=== PATIENT | female | born 1940 | race African-American/Black ===

== ENCOUNTER 2019-11-19 10:45 | Observation (INO) ==
[2019-11-19 12:47] LABS: Basophils # 0.1 K/mcL (0.0-0.2); Basophils % 0.9 %; Eosinophils # 0.2 K/mcL (0.0-0.6); Eosinophils % 3.5 %; Hematocrit 29.5 % (35.3-44.9); Hemoglobin 9.3 g/dL (11.5-15.4); Immature Granulocytes % 0.2 % (0-4); Lymphocytes # 1.8 K/mcL (0.6-4.6); Lymphocytes % 31.8 %; Mean Corpuscular HGB Conc 31.5 g/dL (31.6-35.5); Mean Corpuscular Hemoglobin 28.6 pg (28.0-33.3); Mean Corpuscular Volume 90.8 fL (83.0-100.0); Mean Platelet Volume 9.7 fL (9.4-12.4); Monocytes # 0.5 K/mcL (0.0-1.3); Monocytes % 8.1 %; Neutrophils # 3.1 K/mcL (1.6-8.9); Platelet Count 239 K/mcL (140-400); Red Blood Count 3.25 M/mcL (3.82-4.97); Red Cell Distribution Width 13.3 % (11.5-14.5); Segmented Neutrophils % 55.5 %; White Blood Count 5.7 K/mcL (4.3-11.1)
[2019-11-19 12:53] LABS: INR 1.2; Prothrombin Time 14.1 Seconds (9.4-12.1)
[2019-11-19 12:55] LABS: Activated Partial Thrombo Time 32.6 Seconds (26.0-36.0)
[2019-11-19 13:10] LABS: Alanine Aminotransferase 6 Units/L (7-52); Albumin 3.5 g/dL (3.5-5.7); Albumin/Globulin Ratio 0.8 (1.1-2.2); Alkaline Phosphatase 64 Units/L (34-104); Aspartate Amino Transferase 13 Units/L (13-39); BUN/Creatinine Ratio 16 (6-26); Bilirubin,Total 0.5 mg/dL (0.3-1.0); Blood Urea Nitrogen 15 mg/dL (8-23); Calcium 8.8 mg/dL (8.6-10.3); Carbon Dioxide 23 mEq/L (23-29); Chloride 106 mEq/L (98-107); Globulin 4.2 g/dL (2.4-3.5); Glucose 75 mg/dL (70-105); Osmolality,Calculated 284 (280-300); Potassium 3.9 mEq/L (3.5-5.1); Sodium 137 mEq/L (136-145); Total Protein 7.7 g/dL (6.4-8.9); Troponin I < 0.03 ng/mL (< 0.04); eGFR For African Americans > 60 (> 60); eGFR For Non-African Americans 58 (> 60)
[2019-11-19] MEDS ORDERED: Furosemide 40 MG/4 ML VIAL IVP ONE (13:34)
[2019-11-19] MEDS ORDERED: Naloxone 0.4 MG/ML INJ IVP PRN (15:58)
[2019-11-19] MEDS: *HR* Heparin 5,000 UNIT/ML VIAL SQ SCH (17:44)
[2019-11-19] MEDS: Valsartan 80 MG TABLET PO SCH (20:12)
[2019-11-19] MEDS: Budesonide/Formoterol 160/4.5 1 PUFF INH IH SCH (20:50)
[2019-11-20] MEDS: *HR* Heparin 5,000 UNIT/ML VIAL SQ SCH ×2 (05:53→16:22)
[2019-11-20 06:20] LABS: Hematocrit 29.8 % (35.3-44.9); Hemoglobin 9.3 g/dL (11.5-15.4); Mean Corpuscular HGB Conc 31.2 g/dL (31.6-35.5); Mean Corpuscular Hemoglobin 28.3 pg (28.0-33.3); Mean Corpuscular Volume 90.6 fL (83.0-100.0); Mean Platelet Volume 9.7 fL (9.4-12.4); Platelet Count 228 K/mcL (140-400); Red Blood Count 3.29 M/mcL (3.82-4.97); Red Cell Distribution Width 13.6 % (11.5-14.5); White Blood Count 5.6 K/mcL (4.3-11.1)
[2019-11-20 06:38] LABS: Calcium 8.8 mg/dL (8.6-10.3); Potassium 3.9 mEq/L (3.5-5.1)
[2019-11-20] MEDS: Budesonide/Formoterol 160/4.5 1 PUFF INH IH SCH ×2 (07:53→20:11)
[2019-11-20] MEDS ORDERED: Furosemide 40 MG/4 ML VIAL IVP SCH (09:00)
[2019-11-20] MEDS: Aspirin Enteric Coated 81 MG Tablet PO SCH (09:07)
[2019-11-20] MEDS: Loratadine 10 MG TABLET PO SCH (09:07)
[2019-11-20] MEDS: Folic Acid 1 MG TABLET PO SCH (09:07)
[2019-11-20] MEDS: Valsartan 80 MG TABLET PO SCH ×2 (09:08→21:20)
[2019-11-20] MEDS: Metoprolol XL (24 HR) Succ 25 MG TAB.ER.24H PO SCH (09:08)
[2019-11-20] MEDS: Furosemide 40 MG/4 ML VIAL IVP SCH (21:19)
[2019-11-21 02:44] LABS: BUN/Creatinine Ratio 20 (6-26); Blood Urea Nitrogen 19 mg/dL (8-23); Calcium 8.7 mg/dL (8.6-10.3); Carbon Dioxide 26 mEq/L (23-29); Chloride 107 mEq/L (98-107); Glucose 73 mg/dL (70-105); Osmolality,Calculated 285 (280-300); Potassium 3.7 mEq/L (3.5-5.1); Sodium 137 mEq/L (136-145); eGFR For African Americans > 60 (> 60); eGFR For Non-African Americans 56 (> 60)
[2019-11-21] MEDS: *HR* Heparin 5,000 UNIT/ML VIAL SQ SCH (05:13)
[2019-11-21] MEDS: Budesonide/Formoterol 160/4.5 1 PUFF INH IH SCH (08:25)
[2019-11-21] MEDS: Aspirin Enteric Coated 81 MG Tablet PO SCH (10:04)
[2019-11-21] MEDS: Metoprolol XL (24 HR) Succ 25 MG TAB.ER.24H PO SCH (10:04)
[2019-11-21] MEDS: Valsartan 80 MG TABLET PO SCH (10:04)
[2019-11-21] MEDS: Folic Acid 1 MG TABLET PO SCH (10:04)
[2019-11-21] MEDS: Furosemide 40 MG/4 ML VIAL IVP SCH (10:05)
[2019-11-21] MEDS: Loratadine 10 MG TABLET PO SCH (10:05)
[2019-11-21 11:11] VITALS: BP 143/80
== END 2019-11-21 13:44 | disposition home or self-care (01) ==
LOC: 3BNU 10:45 → EMEROOARM 10:45 → 3BNU 14:37
PROVIDERS: ADMIT Family Medicine; ATTEND Family Medicine